=== PATIENT | male | born 1975 | race Asian ===

== ENCOUNTER 2019-02-04 20:45 | Emergency (ER) | payer OTHER ==
[~2019-02-04] VITALS: Ht 165.1 cm; Wt 57.6 kg
[2019-02-04 20:56] VITALS: Ht 165.1 cm; Wt 57.6 kg
[2019-02-04 21:41] LABS: CALCIUM 8.4 mg/dL (8.5-10.1); CARBON DIOXIDE 28.3 mmol/L (21-32); CHLORIDE SERUM 100 mmol/L (98-107); CREATININE SERUM 1.2 mg/dL (0.7-1.3); GFR1 > 60 mL/min; GLUCOSE SERUM 97 mg/dL (74-106); POTASSIUM SERUM 3.7 mmol/L (3.5-5.1); SODIUM SERUM 135 mmol/L (136-145)
[2019-02-04 21:46] LABS: ALBUMIN 3.9 g/dL (3.4-5.0); ALKALINE PHOSPHATASE 79 U/L (46-116); ALT/SGPT 29 U/L (16-63); AST/SGOT 19 U/L (15-37); BILIRUBIN TOTAL 0.24 mg/dL (0.20-1.00); TOTAL PROTEIN, SERUM 7.4 g/dL (6.4-8.2)
[2019-02-04 21:48] LABS: BASOPHIL % 0.3 % (0-2); PLATELET COUNT 191 x10^3mcL (130-400); RED CELL DISTRIBUTION WIDTH 14.3 % (11.5-14.5)
[2019-02-04 22:04] VITALS: BP 118/79
[2019-02-04 22:09] LABS: microscopic required? NO
[2019-02-04 22:19] LABS: UA SPECIFIC GRAVITY <=1.005 (1.005-1.035); urine erythrocyte NEGATIVE (NEGATIVE)
--- NOTE | 2019-02-05 08:39 | NUR ---
ECHO NOT DONE. ORDER WAS CANCELLED DUE TO DISCHARGE
== END 2019-02-04 22:11 | disposition short-term general hospital (02) ==
LOC: ED 20:45
PROVIDERS: Emergency Medicine
DX: I21.3 ST elevation (STEMI) myocardial infarction of unspecified site (principal); F17.210 Nicotine dependence, cigarettes, uncomplicated
CPT/HCPCS: 84439; J7030; J8597